=== PATIENT | male | born 1960 | race Caucasian/White ===

== ENCOUNTER → 2018-04-10 | Outpatient (CLI) | payer BC | END | disposition home or self-care (01) | LOC: LAB SHORT 08:20 → LAB EV 08:20 | DX: E11.65 Type 2 diabetes mellitus with hyperglycemia (principal) | CPT/HCPCS: 82043 ==

== ENCOUNTER → 2019-04-17 | Outpatient (CLI) | payer BC | END | disposition home or self-care (01) | LOC: LAB SHORT 08:15 → PLD 08:15 | DX: C44.02 Squamous cell carcinoma of skin of lip (principal) | CPT/HCPCS: 88305 ==

== ENCOUNTER 2023-04-02 09:24 | Day surgery (SDC) | payer BC ==
[2023-04-02] VITALS (12 sets, daily range): BP systolic 112–149; BP diastolic 72–99
[~2023-04-02] VITALS: Ht 175.3 cm; Wt 92.1 kg
[~2023-04-02 09:24] MED LIST: ALLO300 PO; ASPI81CH PO; Crestor40 MG PO; EUTHYROX50 MCG PO; FARXIGA10 MG PO; Fenofibrate134 MG PO; LISI20 PO; TRULICITY1.5 MG/0.1 PO; VASCEPA1 G1 PO
[2023-04-02] MEDS ORDERED: METF500 PO (10:00)
--- NOTE | 2023-04-02 10:29 | NUR ---
04/02/23 1029 Precious Mohamud HISTORY, CHART, MEDICATIONS AND ALLERGIES REVIEWED BEFORE START OF PROCEDURE. PATIENT CONFIRMS NPO STATUS AND AGREES WITH SCHEDULED PROCEDURE. 3-LEAD EKG REVIEWED WITH PHYSICIAN PRIOR TO START OF PROCEDURE. MONITOR INTACT WITH CONTINUOUS PULSE OXIMETRY,CAPNOGRAPHY, 3-LEAD EKG, INTERMITTENT BP. SUPPLEMENTAL O2 TO BE TITRATED THROUGHOUT PROCEDURE TO MAINTAIN O2 SATURATION ABOVE 90%. PATIENT DETERMINED TO BE ASA APPROPRIATE FOR PROPOFOL SEDATION PRIOR TO START OF PROCEDURE BY DR. POST
== END 2023-04-02 11:16 | disposition home or self-care (01) ==
LOC: ORSCMMR 09:24 → ORD 10:00 → ORSCMMR 11:16
PROVIDERS: Internal Medicine Gastroenterology
PROC: 0DBM8ZX Excision of Descending Colon, Via Natural or Artificial Opening Endoscopic, Diagnostic (ICD-10-PCS; principal; 2023-04-02 10:00)
DX: K62.5 Hemorrhage of anus and rectum (principal); D12.4 Benign neoplasm of descending colon; K64.8 Other hemorrhoids; E03.9 Hypothyroidism, unspecified; E78.00 Pure hypercholesterolemia, unspecified; E11.9 Type 2 diabetes mellitus without complications; I10 Essential (primary) hypertension; F17.210 Nicotine dependence, cigarettes, uncomplicated; Z79.4 Long term (current) use of insulin; Z79.85 Long-term (current) use of injectable non-insulin antidiabetic drugs; Z79.899 Other long term (current) drug therapy
CPT/HCPCS: 82947; 88305; J2704; J7120